=== PATIENT | female | born 1985 | race Caucasian/White ===

== ENCOUNTER 2018-05-23 20:04 | Emergency (ER) | payer OTHER ==
[~2018-05-23] VITALS: Ht 162.6 cm; Wt 59.9 kg
[2018-05-23 21:43] VITALS: Ht 162.6 cm; Wt 59.9 kg
[2018-05-23 23:41] LABS: BASOPHIL % 0.5 % (0-2); PLATELET COUNT 283 x10^3mcL (130-400)
[2018-05-23 23:42] LABS: RED CELL DISTRIBUTION WIDTH 20.3 % (11.5-14.5)
[2018-05-23 23:44] LABS: CALCIUM 8.8 mg/dL (8.5-10.1); CARBON DIOXIDE 23.7 mmol/L (21-32); CHLORIDE SERUM 103 mmol/L (98-107); CREATININE SERUM 0.6 mg/dL (0.6-1.0); GFR1 > 60 mL/min; GLUCOSE SERUM 96 mg/dL (74-106); POTASSIUM SERUM 3.5 mmol/L (3.5-5.1); SODIUM SERUM 139 mmol/L (136-145)
[2018-05-24 01:21] VITALS: BP 143/77
== END 2018-05-24 01:21 | disposition home or self-care (01) ==
LOC: ED 20:04
PROVIDERS: Specialist
DX: N83.202 Unspecified ovarian cyst, left side (principal); N83.201 Unspecified ovarian cyst, right side; D25.9 Leiomyoma of uterus, unspecified; F41.9 Anxiety disorder, unspecified
CPT/HCPCS: 36415